=== PATIENT | female | born 1965 | race Caucasian/White ===

== ENCOUNTER → 2020-06-08 | Outpatient (CLI) | payer BC ==
--- NOTE | 2020-06-08 14:22 | KCIC ---
LUMBAR SPINE WO CONTRAST Date: 06/08/2020 12:30 PM Indication: Reason: LESION L2 / Spl. Instructions: / History: Follow up to lesion seen on prev CT at L2. Comparison: CT abdomen pelvis 04/27/2020. Technique: Multi-planar multi-weighted magnetic resonance imaging of the lumbar spine was performed without intravenous contrast using the standard lumbar spine protocol. FINDINGS: Transitional anatomy at the lumbosacral junction with the inferior most squared vertebral body designated a partially sacralized L5 vertebra. Trace anterolisthesis at L3-4. No acute fracture. Mild multilevel degenerative disc desiccation and disc height loss. L4 inferior endplate Schmorl's node deformity. L2 hemangioma. The conus terminates at a normal level. No abnormal signal is seen within the visualized distal spinal cord. No clumping of intrathecal nerve roots. No soft tissue abnormality in the visualized abdomen or pelvis. T12-L1: No disc bulge. No facet arthropathy. No significant spinal stenosis or neural foraminal narrowing. L1-L2: No disc bulge. No facet arthropathy. No significant spinal stenosis or neural foraminal narrowing. L2-L3: No disc bulge. No facet arthropathy. No significant spinal stenosis or neural foraminal narrowing. L3-L4: Disc bulge. Moderate facet arthropathy. Ligamentum flavum thickening. Mild spinal stenosis. Mild bilateral neural foraminal narrowing. L4-L5: Disc bulge with annular tear. Mild facet arthropathy. No significant spinal canal stenosis. Mild lateral recess narrowing. Mild bilateral neural foraminal narrowing. L5-S1: No disc bulge. No facet arthropathy. No significant spinal stenosis or neural foraminal narrowing. IMPRESSION: 1. Lesion in L2 seen on the prior CT corresponds to a vertebral body hemangioma. 2. Mild lumbar spondylosis, detailed level by level above. 3. Transitional lumbosacral anatomy with sacralization of L5. Electronically signed by: Norberto Pena MD (06/08/2020 2:19 PM) [id number]
== END ==
LOC: KCIC MRI 12:27
PROVIDERS: ATTEND Physician Assistant Medical
DX: M47.816 Spondylosis without myelopathy or radiculopathy, lumbar region (principal); M48.07 Spinal stenosis, lumbosacral region; G95.89 Other specified diseases of spinal cord; D18.09 Hemangioma of other sites
CPT/HCPCS: 72148